=== PATIENT | female | born 1950 | race American Indian/Alaskan Native ===

== ENCOUNTER 2016-08-07 18:08 | Inpatient (IN) | payer MEDICARE ==
[2016-08-07] MEDS ORDERED: NACL 0.9% 1000 ML 1,000 ML IV ONE (20:30)
--- NOTE | 2016-08-07 20:52 | Emergency Department Report ---
HPI - General Chief Complaint: Nausea/Vomiting/Diarrhea Time Seen by Provider: 08/07/16 20:28 - HPI HPI: Room 8 The patient is a 66-year-old female presenting with a chief complaint of diarrhea. The patient was brought from assisted living facility for diarrhea 10 days. The diarrhea has been recalcitrant to Lomotil and Imodium. Patient denies nausea vomiting or abdominal pain. Patient denies fever, dysuria or hematuria. Patient denies hematochezia. Patient admits her stool has been black but attributes to are intact. Patient denies any recent antibiotic use Location: Gastrointestinal system Duration: 10 days Quality: Painless Severity: Moderate Modifying factors: [see above] Context: [see above] Mode of transportation: [not driving] ED Past Medical Hx - Past Medical History Hx Hypertension: Yes Hx Diabetes: Yes Hx Dementia: Yes - Surgical History Past Surgical History?: Yes Additional Surgical History: Pt's sister reports pt had an unknown surgery to help improve her walking. - Family History Family history: no significant - Social History Smoking Status: Unknown if ever smoked Substance Use Type: None - Medications Home Medications: Home Medications Medication Instructions Recorded Confirmed Last Taken Type Unobtainable 12/21/15 12/21/15 Unknown History ED Review of Systems ROS: Stated complaint: DIARRHEA X 10 DAYS Other details as noted in HPI Comment: All other systems reviewed and negative Constitutional: denies: chills, fever Eyes: denies: eye pain, eye discharge, vision change ENT: denies: ear pain, throat pain Respiratory: denies: cough, shortness of breath, wheezing Cardiovascular: denies: chest pain, palpitations Endocrine: no symptoms reported Gastrointestinal: diarrhea, constipation. denies: abdominal pain, nausea, vomiting Genitourinary: denies: urgency, dysuria, discharge Musculoskeletal: denies: back pain, joint swelling, arthralgia Skin: denies: rash, lesions Neurological: denies: headache, weakness, paresthesias Psychiatric: denies: anxiety, depression Hematological/Lymphatic: denies: easy bleeding, easy bruising Physical Exam - Physical Exam Vital Signs: Vital Signs 08/07/16 08/07/16 08/07/16 18:38 19:51 19:54 Temperature 99.3 F 98.7 F Pulse Rate 110 H 92 H Respiratory 18 18 18 Rate Blood Pressure 124/70 Blood Pressure 159/72 [Left] O2 Sat by Pulse 96 97 Oximetry Physical Exam: GENERAL: The patient is well-developed well-nourished female lying on stretcher not appearing to be in acute distress. [] HEENT: Normocephalic. Atraumatic. Extraocular motions are intact. Patient has moist mucous membranes. NECK: Supple. Trachea midline CHEST/LUNGS: Clear to auscultation. There is no respiratory distress noted. HEART/CARDIOVASCULAR: Regular. There is no tachycardia. There is no gallop rub or murmur. ABDOMEN: Abdomen is soft, nontender. Patient has normal bowel sounds. There is no abdominal distention. SKIN: There is no rash. There is no edema. There is no diaphoresis. NEURO: The patient is awake, and alert. The patient is cooperative. The patient has normal speech MUSCULOSKELETAL: There is no evidence of acute injury. RECTAL: Melena. Guaiac positive ED Course Vital Signs 08/07/16 08/07/16 08/07/16 18:38 19:51 19:54 Temperature 99.3 F 98.7 F Pulse Rate 110 H 92 H Respiratory 18 18 18 Rate Blood Pressure 124/70 Blood Pressure 159/72 [Left] O2 Sat by Pulse 96 97 Oximetry - Consultations Consultation #1: 08/07/16 22:16 GI paged ED Medical Decision Making - Lab Data Result diagrams: 08/07/16 20:54 08/07/16 20:54 Laboratory Tests 08/07/16 08/07/16 08/07/16 20:50 20:54 20:54 WBC 14.4 H RBC 3.87 Hgb 11.0 Hct 33.1 MCV 86 MCH 28 MCHC 33 RDW 15.4 H Plt Count 383 Add Manual Diff Complete Total Counted 100 Seg Neuts % (Manual) 56.0 Band Neutrophils % 25.0 Lymphocytes % (Manual) 12.0 L Reactive Lymphs % (Man) 0 Monocytes % (Manual) 3.0 Eosinophils % (Manual) 4.0 Basophils % (Manual) 0 Metamyelocytes % 0 Myelocytes % 0 Promyelocytes % 0 Blast Cells % 0 Nucleated RBC % Not Reportable Seg Neutrophils # Man 8.1 H Band Neutrophils # 3.6 Lymphocytes # (Manual) 1.7 Abs React Lymphs (Man) 0.0 Monocytes # (Manual) 0.4 Eosinophils # (Manual) 0.6 H Basophils # (Manual) 0.0 Metamyelocytes # 0.0 Myelocytes # 0.0 Promyelocytes # 0.0 Blast Cells # 0.0 WBC Morphology Not Reportable Hypersegmented Neuts Not Reportable Hyposegmented Neuts Not Reportable Hypogranular Neuts Not Reportable Smudge Cells Not Reportable Toxic Granulation Not Reportable Toxic Vacuolation Not Reportable Dohle Bodies Not Reportable Pelger-Huet Anomaly Not Reportable Dragan Rods Not Reportable Platelet Estimate Consistent w auto Clumped Platelets Not Reportable Plt Clumps, EDTA Not Reportable Large Platelets Not Reportable Giant Platelets Not Reportable Platelet Satelliting Not Reportable Plt Morphology Comment Not Reportable RBC Morphology Not Reportable Dimorphic RBCs Not Reportable Polychromasia Not Reportable Hypochromasia Not Reportable Poikilocytosis Not Reportable Anisocytosis 1+ Microcytosis Not Reportable Macrocytosis Not Reportable Spherocytes Not Reportable Pappenheimer Bodies Not Reportable Sickle Cells Not Reportable Target Cells Not Reportable Tear Drop Cells Not Reportable Ovalocytes Not Reportable Helmet Cells Not Reportable Millan-[place]aven Bodies Not Reportable Conway Rings Not Reportable [place] Cells Not Reportable Bite Cells Not Reportable Crenated Cell Not Reportable Elliptocytes Not Reportable Acanthocytes (Spur) Not Reportable Rouleaux Not Reportable Hemoglobin C Crystals Not Reportable Schistocytes Not Reportable Malaria parasites Not Reportable Dragan Bodies Not Reportable Hem Pathologist Commnt No PT INR APTT Sodium 139 Potassium 5.0 Chloride 100.2 Carbon Dioxide 24 Anion Gap 20 BUN 24 H Creatinine 1.1 Estimated GFR 60 BUN/Creatinine Ratio 21.81 Glucose 120 H Calcium 9.2 Total Bilirubin 0.30 AST 13 ALT 5 L Alkaline Phosphatase 58 Total Protein 6.9 Albumin 2.8 L Albumin/Globulin Ratio 0.7 Amylase 28 Lipase 8 L Antibody Screen TNR 08/07/16 21:20 WBC RBC Hgb Hct MCV MCH MCHC RDW Plt Count Add Manual Diff Total Counted Seg Neuts % (Manual) Band Neutrophils % Lymphocytes % (Manual) Reactive Lymphs % (Man) Monocytes % (Manual) Eosinophils % (Manual) Basophils % (Manual) Metamyelocytes % Myelocytes % Promyelocytes % Blast Cells % Nucleated RBC % Seg Neutrophils # Man Band Neutrophils # Lymphocytes # (Manual) Abs React Lymphs (Man) Monocytes # (Manual) Eosinophils # (Manual) Basophils # (Manual) Metamyelocytes # Myelocytes # Promyelocytes # Blast Cells # WBC Morphology Hypersegmented Neuts Hyposegmented Neuts Hypogranular Neuts Smudge Cells Toxic Granulation Toxic Vacuolation Dohle Bodies Pelger-Huet Anomaly Dragan Rods Platelet Estimate Clumped Platelets Plt Clumps, EDTA Large Platelets Giant Platelets Platelet Satelliting Plt Morphology Comment RBC Morphology Dimorphic RBCs Polychromasia Hypochromasia Poikilocytosis Anisocytosis Microcytosis Macrocytosis Spherocytes Pappenheimer Bodies Sickle Cells Target Cells Tear Drop Cells Ovalocytes Helmet Cells Millan-Southaven Bodies Conway Rings Kenn Cells Bite Cells Crenated Cell Elliptocytes Acanthocytes (Spur) Rouleaux Hemoglobin C Crystals Schistocytes Malaria parasites Dragan Bodies Hem Pathologist Commnt PT 15.0 H INR 1.19 H APTT 28.2 Sodium Potassium Chloride Carbon Dioxide Anion Gap BUN Creatinine Estimated GFR BUN/Creatinine Ratio Glucose Calcium Total Bilirubin AST ALT Alkaline Phosphatase Total Protein Albumin Albumin/Globulin Ratio Amylase Lipase Antibody Screen - Radiology Data Radiology results: report reviewed (CT abdomen and pelvis), image reviewed (CT abdomen pelvis) CT abdomen and pelvis (read by radiologist)-constipation - Differential Diagnosis C. difficile colitis, enteritis, gastroenteritis, UTI, GI bleed Critical care attestation.: If time is entered above; I have spent that time in minutes in the direct care of this critically ill patient, excluding procedure time. ED Disposition Clinical Impression: Upper GI bleed Disposition: OP ADMITTED IP TO THIS HOSP Is pt being admited?: Yes Does the pt Need Aspirin: No Condition: Fair Referrals: PRIMARY CARE, [Primary Care Provider] - 3-5 Days Time of Disposition: 02:07 (hospitalist paged)
[2016-08-07 21:04] LABS: Hematocrit 33.1 % (30.3-42.9); Mean Corpuscular HGB Conc 33 % (30-34); Mean Corpuscular Hemoglobin 28 pg (28-32); Mean Corpuscular Volume 86 fl (79-97); Platelet Count 383 K/mm3 (140-440); Red Blood Count 3.87 M/mm3 (3.65-5.03); Red Cell Distribution Width 15.4 % (13.2-15.2); White Blood Count 14.4 K/mm3 (4.5-11.0)
[2016-08-07] MEDS ORDERED: NACL ONE (21:06)
[2016-08-07] MEDS ORDERED: PROTONIX IV ONE ×2 (21:12→23:21)
[2016-08-07 21:32] LABS: Albumin 2.8 g/dL (3.9-5); Albumin/Globulin Ratio 0.7 %; BUN/Creatinine Ratio 21.81; Bilirubin,Total 0.3 mg/dL (0.1-1.2); Calcium 9.2 mg/dL (8.4-10.2); Chloride 100.2 mmol/L (98-107); Total Protein 6.9 g/dL (6.3-8.2)
[2016-08-07 21:37] LABS: INR 1.19 (0.87-1.13)
[2016-08-07 21:38] LABS: Partial Thromboplastin Time 28.2 Sec. (24.2-36.6)
[2016-08-07 22:00] LABS: Basophils % (Manual) 0 % (0.0-1.8); Blastocytes % (Manual) 0 %
[2016-08-07 22:02] LABS: Anisocytosis 1+; Diff Status Complete; Platelet Estimate Consistent w Auto
--- NOTE | 2016-08-08 02:00 | Cat Scan Report ---
FINAL REPORT EXAM: CT ABDOMEN PELVIS W CON HISTORY: diarrhea TECHNIQUE: Spiral CT scanning of the abdomen and pelvis after the uneventful administration of IV contrast. PRIORS: None. FINDINGS: Abdomen: Visualized lung bases grossly unremarkable. No radiopaque gallstones. Liver without significant abnormality. Spleen without significant abnormality. Pancreas without significant abnormality. Kidneys without significant abnormality. Adrenal glands without significant abnormality. Pelvis: moderate-large amount of retained stool and considerable impaction in the rectosigmoid colon. No focal inflammatory segment or evidence of mechanical bowel obstruction. Appendix within normal limits. No significant free peritoneal fluid or apparent adenopathy. Diffuse aortoiliac calcification without aneurysmal dilatation. Diffuse degenerative change in the thoracolumbar spine. IMPRESSION: 1. Constipation.
--- NOTE | 2016-08-08 02:20 | History and Physical Report ---
History of Present Illness History of present illness: 66 YO Female who lives in an Assisted Living Facility with HTN,DM, Dementia presents to ED for evaluation. Pt unable to provide accurate history, and history is taken from ED staff, and EMS. As per [facility] staff, Pt has had loose stools for several days as well as dark tarry stools. No reports of Fever, Chills, CP, Palpitations, NVD, recent ill contacts, recent ill contacts, syncope , NVD, hematuria, trauma, falls. Past History Past Medical History: diabetes, hypertension Past Surgical History: Other (leg surgery) Social history: no significant social history Family history: hypertension Medications and Allergies Allergies Allergy/AdvReac Type Severity Reaction Status Date / Time No Known Allergies Allergy Verified 12/20/15 21:08 Home Medications Medication Instructions Recorded Confirmed Last Taken Type Unobtainable 12/21/15 12/21/15 Unknown History Review of Systems All systems: negative Constitutional: weakness, poor appetite Exam - Constitutional Vitals: Temp Pulse Resp BP Pulse Ox 98.8 F 86 15 156/93 97 08/08/16 00:48 08/08/16 01:41 08/08/16 01:41 08/08/16 01:41 08/08/16 01:41 General appearance: Present: cachectic - EENT Eyes: Present: PERRL ENT: hearing intact, clear oral mucosa - Neck Neck: Present: supple, normal ROM - Respiratory Respiratory effort: normal Respiratory: bilateral: CTA - Cardiovascular Heart Sounds: Present: S1 & S2. Absent: rub, click - Extremities Extremities: pulses symmetrical, No edema Peripheral Pulses: within normal limits - Abdominal General gastrointestinal: Present: soft, non-tender, non-distended, normal bowel sounds Female genitourinary: Present: normal - Integumentary Integumentary: Present: clear, warm, dry, decreased turgor - Musculoskeletal Musculoskeletal: generalized weakness - Psychiatric Psychiatric: no memory intact - Neurologic Neurologic: CNII-XII intact, moves all extremities Results - Labs CBC & Chem 7: 08/07/16 20:54 08/07/16 20:54 Labs: Abnormal lab results 08/07/16 08/07/16 08/07/16 Range/Units 20:54 20:54 21:20 WBC 14.4 H (4.5-11.0) K/mm3 RDW 15.4 H (13.2-15.2) % Lymphocytes % (Manual) 12.0 L (13.4-35.0) % Seg Neutrophils # Man 8.1 H (1.8-7.7) K/mm3 Eosinophils # (Manual) 0.6 H (0.0-0.4) K/mm3 PT 15.0 H (12.2-14.9) Sec. INR 1.19 H (0.87-1.13) BUN 24 H (7-17) mg/dL Glucose 120 H (65-100) mg/dL ALT 5 L (7-56) units/L Albumin 2.8 L (3.9-5) g/dL Lipase 8 L (13-60) units/L Assessment and Plan - Patient Problems (1) Upper GI bleed Current Visit: Yes Status: Acute Plan to address problem: GI Bleed Protocol: IV ppi therapy, GI consulted, Hgb stable, No transfusion at this time. (2) Accelerated hypertension Current Visit: Yes Status: Acute Plan to address problem: Monitor bp q shift, hydralazine prn. (3) Malnutrition Current Visit: Yes Status: Acute Plan to address problem: Encourage oral intake, when awake (4) Dementia Current Visit: Yes Status: Chronic Qualifiers: Dementia type: D Alzheimer's disease onset: A Dementia behavioral disturbance: D Plan to address problem: resume home medication, monitor bp q shift, supportive care (5) DVT prophylaxis Current Visit: Yes Status: Acute
[2016-08-08] MEDS ORDERED: DUONEB 0.5 MG-3 MG/3 ML SOLN IH PRN (02:27)
[2016-08-08] MEDS ORDERED: DULCOLAX PR PRN (02:27)
[2016-08-08] MEDS ORDERED: TYLENOL PO PRN (02:27)
[2016-08-08] MEDS ORDERED: ZOFRAN IV PRN (02:27)
[2016-08-08] MEDS ORDERED: MILK OF MAGNESIA PO PRN (02:27)
[2016-08-08] MEDS ORDERED: APRESOLINE IV PRN (02:32)
[2016-08-08] MEDS ORDERED: FLEET PR PRN (02:34)
[2016-08-08] MEDS ORDERED: PROVENTIL IH PRN (02:52)
[2016-08-08] MEDS ORDERED: NACL 0.45% 1000 ML 1,000 ML IV SCH (03:00)
[2016-08-08 04:34] LABS: Bacteria,Urine 1+ /HPF (Negative); Bilirubin,Urine NEG (Negative); Blood,Urine SM (Negative); Ketones,Urine TR mg/dL (Negative); Leukocyte Esterase,Urine MOD (Negative); Mucus,Urine FEW /HPF; Nitrite,Urine NEG (Negative); Protein,Urine <15 mg/dL mg/dL (Negative); Urobilinogen,Urine < 2.0 mg/dL (<2.0)
[2016-08-08] MEDS: PROTONIX 80 MG in NACL 0.9% 100 ML IV SCH ×2 (05:01→19:22)
[2016-08-08] MEDS: FLAGYL PO SCH ×3 (06:08→21:59)
--- NOTE | 2016-08-08 08:41 | Event Note ---
Date: 08/08/16 Patient was admitted this morning with the rectal bleeding Patient seen and evaluated medical records reviewed Awaiting GI evaluation and recommendations Physical examination no new changes Agreed with the current management Closely monitor H&H and transfuse as needed Plan of care discussed with the patient as well as the nurse
[2016-08-08] MEDS ORDERED: LOPRESSOR PO ONE (13:40)
[2016-08-08] MEDS: APRESOLINE PO SCH ×2 (13:59→21:58)
[2016-08-08] MEDS ORDERED: CARDIZEM PO SCH (14:00)
--- NOTE | 2016-08-08 16:38 | Admit Criteria Form ---
Admission Criteria Documentation: GASTROINTESTINAL BLEEDING, UPPER Clinical Indications for Admission to Inpatient Care ( Place 'X' for any and all applicable criteria): Admission is indicated for ANY ONE of the following(1)(2)(3)(4)(5)(6): [ ]I. Active bleeding (eg, fresh voluminous blood in emesis or nasogastric aspirate) [ ]II. Associated conditions requiring hospitalization (eg, perforation, obstruction from ulcer) [X ]III. Inpatient admission required rather than observation care (Also use Gastrointestinal Bleeding, Upper: Observation Care as appropriate) because of ANY ONE of the following: [ ]a) Hemodynamic instability that is severe or persistent [ ]b) Anemia requiring inpatient admission as indicated by ALL of the following: [ ]1) Presence of significant clinical finding indicated by ANY ONE of the following: [ ]A. Tachycardia for age [ ]B. Orthostatic vital sign changes [ ]C. Cognitive impairment [ ]D. Heart failure [ ]E. Chest pain [ ]F. Exertional dyspnea [ ]G. Other findings suggesting inadequate perfusion (eg, peripheral or myocardial ischemia, end organ dysfunction) [ ]2) Initial (eg, emergency department, observation care) treatment with transfusion or volume replacement is judged inappropriate (due to severity of the finding) or has been ineffective [ ]c) Severe pain requiring acute inpatient management [ ]d) High-risk low platelet count [ ]e) IV fluid to replace significant ongoing losses (greater than 3 L/m2 per day) [ ]f) Immediate inpatient surgery [ X]g) Other condition, treatment or monitoring requiring inpatient admission [ ]IV. Severe liver disease (eg, cirrhosis) [ ]V. Significant active comorbid disease [ ]. Anticoagulation therapy [ ]VII. High-risk endoscopic features (arterial bleeding, adherent clot, nonbleeding visible vessel, varices, flat red spots, ulcer size greater than 2 cm, or portal hypertensive gastropathy) [ ]VIII. Previous aortic graft placement or known aortic aneurysm [ ]IX. Coagulopathy [ ]X. Syncope Extended stay beyond goal length of stay may be needed for(1)(2): [ ]a) Emergency surgery [ ]b) Varices [ ]c) Coagulation abnormalities [ ]d) Recurrent, obscure, or persistent bleeding or continued Hemodynamic instability [ ]e) Associated conditions requiring surgery (eg, perforated gastric ulcer, gastric outlet obstruction) [ ]f) Active comorbidities (eg, renal insufficiency, heart failure, pre- existing liver disease) The original [facility] [employer] content created by [facility] has been revised. The portions of the content which have been revised are identified through the use of italic text or in bold, and [facility] has neither reviewed nor approved the modified material. All other unmodified content is copyright [facility] [employer]. Please see references footnoted in the original [facility] [employer] edition 2016 Admission Criteria Met: Yes
--- NOTE | 2016-08-08 18:39 | Gastroenterology Consultation ---
History of Present Illness - Reason for Consult Consult date: 08/08/16 melena Requesting physician: ZITA GRIFFIN - History of Present Illness The patient is a 66-year-old female admitted for suspected GI bleeding. The patient had been passing tarry black stools. She denies any abdominal pain nausea or vomiting. The patient notes that she has been on iron therapy which often makes her stools dark. He reports having a colonoscopy approximately 5 years ago but has not had an upper endoscopy in the past. She has no prior history of peptic ulcer disease. Past History Past Medical History: diabetes, hypertension Past Surgical History: Other (leg surgery) Social history: no significant social history Family history: hypertension Medications and Allergies Allergies Allergy/AdvReac Type Severity Reaction Status Date / Time No Known Allergies Allergy Verified 12/20/15 21:08 Home Medications Medication Instructions Recorded Confirmed Last Taken Type Unobtainable 12/21/15 12/21/15 Unknown History Active Meds: Active Medications Acetaminophen (Tylenol) 650 mg PO Q4H PRN PRN Reason: Pain MILD(1-3)/Fever >100.5/GIBSON Albuterol (Proventil) 2.5 mg IH Q6HRT PRN PRN Reason: Shortness Of Breath Bisacodyl (Dulcolax) 10 mg MO QDAY PRN PRN Reason: Constipation unrelieved by MOM Hydralazine HCl (Apresoline) 10 mg IV Q6H PRN PRN Reason: Hypertension Hydralazine HCl (Apresoline) 10 mg PO Q8HR [facility] Last Admin: 08/08/16 13:59 Dose: 10 mg Sodium Chloride (Nacl 0.45% 1000 Ml) 1,000 mls @ 42 mls/hr IV DIRECT HARSHA Last Admin: 08/08/16 05:00 Dose: 42 mls/hr Pantoprazole Sodium 80 mg/ (Sodium Chloride) 100 mls @ 10 mls/hr IV DIRECT HARSHA PRN Reason: 8 MG/HR Last Admin: 08/08/16 05:01 Dose: 8 mg/hr, 10 mls/hr Magnesium Hydroxide (Milk Of Magnesia) 30 ml PO Q4H PRN PRN Reason: Constipation Metoprolol Tartrate (Lopressor) 12.5 mg PO BID HARSHA Metronidazole (Flagyl) 500 mg PO Q8HR [facility] Last Admin: 08/08/16 13:59 Dose: 500 mg Ondansetron HCl (Zofran) 4 mg IV Q8H PRN PRN Reason: N/V unrelieved by Reglan Sodium Biphosphate/Sodium Phosphate (Fleet) 133 ml MO QDAY PRN PRN Reason: Bowel Movement Review of Systems - Review of Systems Constitutional: no weight loss, no weight gain Eyes: no change in vision Ears, Nose, Throat: no decreased hearing, no difficulty swallowing, no epistaxis Breasts: deferred Cardiovascular: no chest pain, no rapid/irregular heart beat, no shortness of breath, no syncope Respiratory: no cough, no shortness of breath, no wheezing Gastrointestinal: melena, no abdominal pain, no nausea, no vomiting, no constipation, no change in bowel habits, no BRBPR Rectal: no pain, no incontinence, no bleeding Female Genitourinary: deferred Musculoskeletal: no gait dysfunction, no joint pain Integumentary: no rash, no pruritis, no jaundice Neurological: no head injury, no paralysis Psychiatric: no anxiety, no memory loss Endocrine: no cold intolerance, no heat intolerance Hematologic/Lymphatic: no easy bruising, no easy bleeding Allergic/Immunologic: no wheezing Exam - Constitutional Vital Signs: Temp Pulse Resp BP Pulse Ox 98.9 F 106 H 16 118/55 98 08/08/16 16:00 08/08/16 13:59 08/08/16 16:00 08/08/16 16:00 08/08/16 16:00 General appearance: no acute distress, well-nourished - EENT Eyes: PERRL ENT: hearing intact, clear oral mucosa, dentition normal - Neck Neck: supple, normal ROM, no masses or JVD - Respiratory Respiratory effort: normal Respiratory: bilateral: CTA - Breasts Breasts: deferred - Cardiovascular Rhythm: regular Heart Sounds: Present: S1 & S2. Absent: gallop, rub Extremities: pulses intact, No edema, normal color, Full ROM - Gastrointestinal General gastrointestinal: Present: soft, non-tender, non-distended, normal bowel sounds. Absent: hepatomegaly, splenomegaly, mass Rectal Exam: deferred - Labs CBC & Chem 7: 08/07/16 20:54 08/07/16 20:54 Lab Results: Laboratory Results - last 24 hr 08/08/16 08/08/16 03:50 06:28 POC Glucose 170 H Urine Color Yellow Urine Turbidity Clear Urine pH 5.0 Ur Specific Munith 1.026 Urine Protein <15 mg/dl Urine Glucose (UA) Neg Urine Ketones Tr Urine Blood Sm Urine Nitrite Neg Urine Bilirubin Neg Urine Urobilinogen < 2.0 Ur Leukocyte Esterase Mod Urine WBC (Auto) 16.0 H Urine RBC (Auto) 1.0 U Epithel Cells (Auto) 10.0 Urine Bacteria (Auto) 1+ Urine Mucus Few Assessment and Plan - Patient Problems (1) Melena Current Visit: Yes Status: Acute Plan to address problem: Rule out upper digestive sources of blood loss including peptic ulcer disease, angiodysplasia or neoplasia. Alternatively rule out a right colon source of blood loss. Rule out pseudomelana secondary to iron. Upper endoscopy is planned for tomorrow morning. Thank you very much for asking me to see Mrs. Uriarte and consultation. (2) Accelerated hypertension Current Visit: Yes Status: Acute
[2016-08-08] MEDS: LOPRESSOR PO SCH (21:12)
[2016-08-09 07:31] LABS: Basophils % (Auto) 0.3 % (0.0-1.8); Eosinophils % (Auto) 3.3 % (0.0-4.3); Hematocrit 30.7 % (30.3-42.9); Mean Corpuscular HGB Conc 32 % (30-34); Mean Corpuscular Hemoglobin 27 pg (28-32); Mean Corpuscular Volume 84 fl (79-97); Platelet Count 378 K/mm3 (140-440); Red Blood Count 3.66 M/mm3 (3.65-5.03); Red Cell Distribution Width 15.6 % (13.2-15.2); White Blood Count 12.8 K/mm3 (4.5-11.0)
[2016-08-09 07:51] LABS: Anion Gap 20 mmol/L; Blood Urea Nitrogen 20 mg/dL (7-17); Calcium 8.3 mg/dL (8.4-10.2); Carbon Dioxide 21 mmol/L (22-30); Chloride 103.2 mmol/L (98-107); Glucose 122 mg/dL (65-100); Sodium 140 mmol/L (137-145)
--- NOTE | 2016-08-09 10:28 | Anesthesia Day of Surgery ---
Anesthesia Day of Surgery - Day of Surgery Patient Examined: Yes Patient H&P Reviewed: Yes Patient is NPO: Yes
--- NOTE | 2016-08-09 10:29 | Anesthesia Consultation ---
Anesthesia Consult and Med Hx Date of service: 08/09/16 - Airway Anesthetic Teeth Evaluation: Edentulous ROM Head & Neck: Adequate Mental/Hyoid Distance: Adequate Mallampati Class: Class II Intubation Access Assessment: Probably Good - Pulmonary Exam CTA: Yes - Cardiac Exam Cardiac Exam: RRR - Pre-Operative Health Status ASA Pre-Surgery Classification: ASA4 Proposed Anesthetic Plan: MAC - Cardiovascular System Hx Hypertension: Yes (accelerated) - Central Nervous System Hx Psychiatric Problems: Yes (dementia)
[2016-08-09] MEDS ORDERED: XYLOCAINE MPF 2% ONE (10:30)
[2016-08-09] MEDS ORDERED: WATER FOR IRRIG STERILE IR ONE (10:32)
[2016-08-09] MEDS ORDERED: DIPRIVAN 10 MG/ML IV ONE (10:40)
[2016-08-09] MEDS ORDERED: NACL 0.9% 1000 ML 1,000 ML IV SCH (11:00)
--- NOTE | 2016-08-09 11:01 | Operative Report ---
Operative Report Operative Report: Date of procedure: [08/09/2016] Procedure: Esophagogastroduodenoscopy Preprocedure diagnosis:. History of melena Post procedure diagnosis: Normal study Endoscopist: Dr. Moya Anesthesia: Monitored anesthesia care per anesthesia department Medications: Propofol per anesthesia Estimated blood loss: 0 After careful discussion of the nature and purpose of the procedure as well as details the technique risks benefits and alternatives consent was obtained. The patient was placed in the left lateral decubitus position and medicated per anesthesia. The tip of the [employer] EQ 570 video scope was passed per orum under direct vision into the esophagus and advanced into the stomach and descending duodenum. The descending duodenum the duodenal bulb and pylorus were symmetrical and normal. The scope was withdrawn into the stomach and the stomach then gently insufflated with air. The antrum was normal. The stomach was further insufflated and the scope was then retroflexed and partially withdrawn. The cardia, fundus, and body of the stomach were within normal limits and easily distensible.The scope was then withdrawn in the forward position. The esophagogastric junction was at 40 cm. The esophageal body was normal throughout. The procedure was was well tolerated and the patient was observed in recovery. Impressions: Normal upper digestive tract. Plan: May consider for outpatient colonoscopy. The patient appears stable for discharge at this point. Electronically signed: Skip Moya MD
--- NOTE | 2016-08-09 11:04 | Post Anesthesia Evaluation ---
- Post Anesthesia Evaluation Patient Participated: No Airway Patent: Yes Stable Respiratory Function: Yes Nausea/Vomiting: No Temp > 96.8F: Yes Pain Manageable: Yes Adequeate Hydration: Yes Anesthesia Complications: Yes Block Receding Appropriately: Not Applicable Patient on Ventilator: No
[2016-08-09] MEDS: LOPRESSOR PO SCH (11:13)
--- NOTE | 2016-08-09 13:36 | Discharge Summary ---
Providers - Providers Date of Admission: 08/08/16 02:27 Date of discharge: 08/09/16 Attending physician: DEEPTI DAVIS 08/08/16 07:28 Consult to Wound/ET Nurse [CONS] Routine Reason For Exam: wound eval Primary care physician: [facility] Hospitalization Reason for admission: GI bleeding/ melena. Condition: Fair Pertinent studies: EGD; normal study Advised outpatient colonoscopy CT abdomen and pelvis with contrast; constipation Hospital course: Final diagnosis; Upper GI bleeding/melena [negative EGD, outpatient colonoscopy upon discharge] Malignant hypertension Dementia Hypertension Dyslipidemia Type 2 diabetes mellitus Constipation Consults; GI Dr. Del Cid Brief history and hospital course; Very pleasant 66-year-old female patient from assisted living facility with significant history of hypertension diabetes mellitus dementia was admitted through emergency room with the history of upper GI bleeding and melena Patient was initially evaluated admitted to the hospital noted to have constipation to check stool softeners Blood pressures and H&H were closely monitored which remained stable Evaluated by GI and later underwent EGD which was negative GI advised Protonix and recommend outpatient colonoscopy upon discharge The patient is comfortable in bed alert awake oriented 3 Vital signs are stable [id number] evaluation physical examination done by me prior to discharge is unremarkable As detailed Patient advised plenty of oral fluids and high-fiber diet and stool softeners if needed If she has any new episodes of upper or lower GI bleeding advised to contact M.D. go to emergency room as needed Patient is hemodynamically and clinically stable for discharge and does not need any further acute inpatient care this time Disposition: DC/TX ANOTHER TYPE HEALTHCARE Time spent for discharge: 31 min Core Measure Documentation - Palliative Care Palliative Care/ Comfort Measures: Not Applicable - Core Measures Any of the following diagnoses?: none Exam - Constitutional Vitals: Temp Pulse Resp BP Pulse Ox 98.4 F 108 H 20 135/78 98 08/09/16 10:54 08/09/16 11:24 08/09/16 11:24 08/09/16 11:24 08/09/16 11:24 General appearance: Present: no acute distress, well-nourished - EENT Eyes: Present: PERRL, EOM intact - Neck Neck: Present: supple, normal ROM - Respiratory Respiratory effort: normal Respiratory: bilateral: diminished, negative: rales, rhonchi, wheezing - Cardiovascular Rhythm: regular Heart Sounds: Present: S1 & S2 - Extremities Extremities: no ischemia, pulses intact, pulses symmetrical Peripheral Pulses: within normal limits - Abdominal General gastrointestinal: Present: soft, non-tender, non-distended, normal bowel sounds - Integumentary Integumentary: Present: clear, warm - Musculoskeletal Musculoskeletal: strength equal bilaterally - Psychiatric Psychiatric: appropriate mood/affect, cooperative - Neurologic Neurologic: CNII-XII intact, moves all extremities Plan Activity: no restrictions Diet: low cholesterol, low salt, diabetic Additional Instructions: If you have any hematemesis melena or rectal bleeding, contact M.D. or go to the emergency room. Follow with GI for outpatient colonoscopy Follow up with: PRIMARY CAREMD [Primary Care Provider] - 3-5 Days SANIYA DEL CID MD [Staff Physician] - 7 Days Prescriptions: Docusate Sodium [Colace] 100 mg PO BID PRN #20 capsule PRN Reason: Constipation Metoprolol [Lopressor TAB] 12.5 mg PO BID #60 tablet metroNIDAZOLE [Flagyl TAB] 500 mg PO Q8HR #15 tablet Pantoprazole [Protonix] 40 mg PO QDAY #30 tablet
[2016-08-09] MEDS: APRESOLINE PO SCH (17:16)
[2016-08-09] MEDS: FLAGYL PO SCH (17:17)
[2016-08-09 17:31] VITALS: BP 134/76
[2016-08-09] MEDS ORDERED: PROTONIX PO SCH (22:00)
== END 2016-08-09 18:30 | disposition home or self-care (01) | DRG 378 ==
LOC: ED 18:08 → 3A 08-08 02:27
PROVIDERS: ADMIT Internal Medicine; ATTEND Internal Medicine
PROC: 0DJ08ZZ Inspection of Upper Intestinal Tract, Via Natural or Artificial Opening Endoscopic (ICD-10-PCS; principal; 2016-08-09)
DX: K92.2 Gastrointestinal hemorrhage, unspecified (principal); E46 Unspecified protein-calorie malnutrition; I10 Essential (primary) hypertension; F03.90 Unspecified dementia, unspecified severity, without behavioral disturbance, psychotic disturbance, mood disturbance, and anxiety; Z68.20 Body mass index [BMI] 20.0-20.9, adult; E11.9 Type 2 diabetes mellitus without complications; K59.00 Constipation, unspecified; E78.5 Hyperlipidemia, unspecified; Z82.49 Family history of ischemic heart disease and other diseases of the circulatory system
CPT/HCPCS: 36415; 74177; 80048; 80053; 81001; 82150; 82271; 82962; 83690; 85007; 85025; 85610; 85730; 86850; 86900; 86901; 93005; 93010; 96374; C9113; J2704; J7030; Q9967